=== PATIENT | female | born 1950 | race Asian ===

== ENCOUNTER 2018-03-18 17:01 | Day surgery (SDC) | payer OTHER ==
[2018-03-18] MEDS ORDERED: POLYMYXIN/BACITRACIN 1L IRRIG (18:16)
[2018-03-18] MEDS ORDERED: ONDANSETRON 4 MG INJ IV (18:30)
[2018-03-18] MEDS ORDERED: HYDROmorphONE 1 MG/5 ML IV SYRINGE IV ×2 (18:30)
[2018-03-18] MEDS ORDERED: hydrALAzine 20 MG INJ IV (18:30)
[2018-03-18] MEDS ORDERED: ETOMIDATE 20 MG INJ (18:46)
[2018-03-18] MEDS ORDERED: LIDOCAINE 2% (SDV) 5 ML INJ ×2 (18:46→18:50)
[2018-03-18] MEDS ORDERED: MIDAZOLAM 1 MG/ML 2 ML INJ (18:46)
[2018-03-18] MEDS ORDERED: FENTAnyl 50 MCG/ML VIAL (18:46)
[2018-03-18] MEDS ORDERED: ROPIVACAINE 0.2% 20 ML VIAL (18:50)
[2018-03-18] MEDS: VANCOMYCIN 1 GM INJ (19:17)
[2018-03-18] MEDS: LABETALOL HCL 20MG INJ IV (19:44)
== END 2018-03-18 20:35 ==
LOC: SDS 20:35
DX: E11.621 Type 2 diabetes mellitus with foot ulcer (principal); L03.115 Cellulitis of right lower limb; L02.611 Cutaneous abscess of right foot; I10 Essential (primary) hypertension; E78.5 Hyperlipidemia, unspecified
CPT/HCPCS: 11042; 87070; 87075; 87102; 87116; 88304

== ENCOUNTER 2018-04-03 17:14 | Day surgery (SDC) | payer OTHER ==
[2018-04-03] MEDS ORDERED: MEPERIDINE 25 MG INJ IV (17:30)
[2018-04-03] MEDS ORDERED: FENTAnyl 50 MCG/ML VIAL IV ×3 (17:30)
[2018-04-03] MEDS ORDERED: EPHEDrine SULFATE 50 MG/5 ML SYG IV (17:30)
[2018-04-03] MEDS ORDERED: DIPHENHYDRAMINE 50 MG INJ IV (17:30)
[2018-04-03] MEDS ORDERED: LABETALOL HCL 20MG INJ IV (17:30)
[2018-04-03] MEDS ORDERED: METOCLOPRAMIDE 10 MG INJ IV (17:30)
[2018-04-03] MEDS ORDERED: OXYCODONE/ACETAMINOPHEN (5/325) TAB PO ×2 (17:30)
[2018-04-03] MEDS ORDERED: MIDAZOLAM 1 MG/ML 2 ML INJ IV (17:30)
[2018-04-03] MEDS ORDERED: ONDANSETRON 4 MG INJ IV (17:30)
[2018-04-03] MEDS ORDERED: METOCLOPRAMIDE 10 MG INJ (17:39)
[2018-04-03] MEDS ORDERED: PROPOFOL 20 ML (17:39)
[2018-04-03] MEDS ORDERED: ONDANSETRON 4 MG INJ (17:39)
[2018-04-03] MEDS ORDERED: LIDOCAINE 2% (SDV) 5 ML INJ (17:39)
[2018-04-03] MEDS: POLYMYXIN/BACITRACIN 1L IRRIG IRR (18:16)
[2018-04-03] MEDS: hydrALAzine 20 MG INJ IV ×2 (19:11→19:20)
== END 2018-04-03 19:55 | disposition other institution (70) ==
LOC: SDS 17:14
DX: E11.621 Type 2 diabetes mellitus with foot ulcer (principal); L03.115 Cellulitis of right lower limb; E78.5 Hyperlipidemia, unspecified; J45.909 Unspecified asthma, uncomplicated
CPT/HCPCS: 11043